=== PATIENT | female | born 1980 | race Caucasian/White ===

== ENCOUNTER 2016-10-31 16:54 | Inpatient (IN) | payer OTHER ==
[~2016-10-31] VITALS: Ht 175.3 cm; Wt 104.3 kg
[~2016-10-31 16:54] MED LIST: IBUPROFEN800 MG PO
[2016-10-31 18:36] LABS: ABSOLUTE BASOPHIL COUNT 0.1 /CUMM (0.0-0.2); ABSOLUTE EOSINOPHIL COUNT 0.3 /CUMM (0.0-0.7); ABSOLUTE LYMPH COUNT 2.5 /CUMM (1.2-3.4); ABSOLUTE MONOCYTE COUNT 1.1 /CUMM (0.10-0.60); BASOPHIL % 0.3 % (0.0-2.0); EOSINOPHIL % 1.7 % (0-5); GRANULOCYTE % 75.7 % (42.2-75.2); HEMATOCRIT 34.3 % (37-47); MEAN CORPUSCULAR HGB 30.6 PG (27.0-31.0); MEAN CORPUSCULAR HGB CONC 34.3 G/DL (33.0-37.0); MEAN CORPUSCULAR VOLUME 89.2 FL (81.0-99.0); MEAN PLATELET VOLUME 7.8 FL (7.4-10.4); PLATELET COUNT 293 /CUMM (130-400); RBC DISTRIBUTION WIDTH 13.2 % (11.5-14.5); RED BLOOD CELL CT 3.85 /CUMM (4.20-5.40); WHITE BLOOD CELL COUNT 15.8 /CUMM (4.8-10.8)
--- NOTE | 2016-10-31 19:31 | Operative Report ---
See Addendum Operative/Inv Procedure Report Surgery Date: 10/31/16 Name of Procedure: Primary Pre-Operative Diagnosis: Nonreassuring heart rate testing Post-Operative Diagnosis: Nuchal cord 2 Estimated Blood Loss: 650 mL Surgeon/Rotor Blade Installer: OSVALDO GEORGE MD,NATASHA Taveras M.D. Anesthesia: spinal Operative/Procedure Note Note: The patient was brought to the operating room and placed on the OR table in the sitting position where she underwent spinal anesthetic without complication. She was repositioned into dorsal supine with a block under her right. Venodyne boots were placed and activated. A Price catheter was previously placed and draining clear yellow urine. The abdomen was then prepped and draped in usual sterile fashion. A Pfannenstiel skin incision was made with the scalpel and taken down to the layer of fascia. The fascia was nicked in the midline and extended bilaterally. Rectus muscles were and the peritoneal cavity was entered bluntly. Bladder flap was created sharply. A low transverse uterine incision made with the scalpel and a liveborn female was delivered atraumatically and handed off to the awaiting curber. There was a shoulder cord and a leg cord. The placenta was then manually removed and the uterus was wiped clean with a wet lap sponge. His closed in 2 layers of 0 Polysorb, the second imbricating the first. The pelvis and abdomen were copiously irrigated. Hemostasis was good. Rectus muscles were reapproximated using 2 interrupted sutures of 2-0 Polysorb. The fascia was closed using #1 Polysorb. Subcutaneous tissues were irrigated and coagulated were needed and the skin was closed using stacie a dry sterile dressing was applied to the wound the patient wasn't sent to recovery in good condition. All needle, sponge, and instrument counts were correct at the end of the procedure 2.
--- NOTE | 2016-10-31 19:43 | History & Physical ---
General Information and HPI MD Statement: I have seen and personally examined CHUCHO CAMERON and documented this H&P. The patient is a 36 year old female at [38] weeks and [4] days gestation who presented with a chief complaint of [ deceleration]. Source of Information: police History of Present Illness: The patient is a 36-year-old 1 para 0 LMP 02/05/2016 EDC 11/11/2016 at 38 weeks and 4 days who presents from primary care doctor's office with spontaneous deceleration on nonstress test. Here on evaluation she also had a spontaneous severe variable deceleration. care is been complete and unremarkable. Allergies/Medications Allergies: Coded Allergies: NO KNOWN ALLERGIES (04/22/15) Home Med list Ibuprofen 800 MG TAB 1 TAB PO TID PRN PAIN Past History remote sensing surveyor History : 1 Para: 0 Last Menstrual Period: 02/05/2016 Estimated Delivery Date: 11/11/2016 Past remote sensing surveyor History: none Medical History Neurological: NONE EENT: NONE Cardiovascular: NONE Respiratory: NONE Gastrointestinal: NONE Hepatic: NONE Renal: NONE Musculoskeletal: NONE Psychiatric: NONE Endocrine: NONE Surgical History Pertinent Surgical History: none, N Review of Systems Review of Systems Constitutional: Reports: no symptoms. EENTM: Reports: no symptoms. Cardiovascular: Reports: no symptoms. Respiratory: Reports: no symptoms. GI: Reports: no symptoms. Genitourinary: Reports: no symptoms. Musculoskeletal: Reports: no symptoms. Skin: Reports: no symptoms. Neurological/Psychological: Reports: no symptoms. Hematologic/Endocrine: Reports: no symptoms. Immunologic/Allergic: Reports: no symptoms. All Other Systems: Reviewed and Negative Exam & Diagnostic Data Obstetric Exam Wgt Gained During : 45 Pelvimetry: Gynecoid Dilation (cm): 0 Effacement (%): 0 Station: -3 Membranes: intact Fluid: clear Fundal Height (cm): 40 Multiple Gestation? No Contractions: None Infant #1 - FHR Baseline: 125 Category: 3 Estimated Weight: 7 pounds Presentation: Cephalic Patient for Induction? No Labs Blood Type & Rh: O+ Antibody Screen: Negative Hct/Hgb & Platelets #1: Hct/Hgb & Platelets #2: Rubella: Immune VDRL #1: Nonreactive VDRL #2: Nonreactive HbsAg: Negative HIV #1: Negative HIV #2 Negative 1 Hr P Group B Strep: Negative Initial Ultrasound: Within normal limits Anatomy Ultrasound: Within normal limits Ultrasound for EFW: 7 Genetic Testing: Negative Last 24 Hrs of Labs/Pancho: Laboratory Tests 10/31/16 1800: CBC w Diff NO MAN DIFF REQ, RBC 3.85 L, MCV 89.2, MCH 30.6, RDW 13.2, MPV 7.8, Gran % 75.7 H, Lymphocytes % 15.5 L, Monocytes % 6.8, Eosinophils % 1.7, Basophils % 0.3, Absolute Granulocytes 12.0 H, Absolute Lymphocytes 2.5, Absolute Monocytes 1.1 H, Absolute Eosinophils 0.3, Absolute Basophils 0.1, PUBS MCHC 34.3 Microbiology 10/31 1818 URINE ROUT: Urine Culture - COLB ITS Data ITS Data Unobtainable at this time Assessment/Plan Assessment/Plan: 39 week nonreassuring heart rate testing Plan: Urgent As Ranked By This Provider Problem List: 1. Non-reassuring cardiotocographic tracing Core Measures/Miscellaneous Venous Thromboembolism VTE Risk Factors: / VTE Contraindications: No Contraindications VTE Diagnosis: No Beta Allegra Is Beta Allegra a Home Med? No Antibiotics Is Patient on Antibiotics? Yes
[2016-10-31] MEDS ORDERED: CELEXA10 M1 PO (21:07)
[2016-11-01 08:21] LABS: ABSOLUTE BASOPHIL COUNT 0 /CUMM (0.0-0.2); ABSOLUTE EOSINOPHIL COUNT 0 /CUMM (0.0-0.7); ABSOLUTE GRANULOCYTE CT 21.6 /CUMM (1.4-6.5); ABSOLUTE LYMPH COUNT 1.8 /CUMM (1.2-3.4); BASOPHIL % 0.1 % (0.0-2.0); EOSINOPHIL % 0.2 % (0-5); HEMATOCRIT 34.4 % (37-47); MEAN CORPUSCULAR HGB 30.6 PG (27.0-31.0); MEAN CORPUSCULAR HGB CONC 34.2 G/DL (33.0-37.0); MEAN CORPUSCULAR VOLUME 89.6 FL (81.0-99.0); MEAN PLATELET VOLUME 8.1 FL (7.4-10.4); RBC DISTRIBUTION WIDTH 13.3 % (11.5-14.5); RED BLOOD CELL CT 3.84 /CUMM (4.20-5.40)
[2016-11-01 08:46] LABS: WHITE BLOOD CELL COUNT 24.5 /CUMM (4.8-10.8)
[2016-11-01 08:47] LABS: GRANULOCYTE % 88.5 % (42.2-75.2); PLATELET COUNT 305 /CUMM (130-400)
[2016-11-03] MEDS ORDERED: PERCOCET 5-3251 EACH PO (12:17)
[2016-11-03] MEDS ORDERED: IBUPROFEN800 M1 PO (12:17)
[2016-11-03] MEDS ORDERED: DOCUSATE SODIU100 M3 PO (12:23)
--- NOTE | 2016-11-20 18:03 | Surgical Discharge Summary ---
Visit Information Visit Dates Admission Date: 10/31/16 Discharge Date: 11/03/16 History of Present Illness Chief Complaint: Nonreassuring heart rate testing Medical History Neurological: NONE EENT: NONE Cardiovascular: NONE Respiratory: NONE Gastrointestinal: NONE Hepatic: NONE Renal: NONE Musculoskeletal: NONE Psychiatric: NONE Endocrine: NONE Surgical History Pertinent Surgical History: none, N Psychosocial History What is Your Primary Language? [place] Review of Systems: Negative Hospital Course Course Attending Physician: NATASHA ROGERS MD Primary Care Physician: MIROSLAVA MONROE,[facility] Course: The patient was noted to have a spontaneous variable deceleration and the FORMS ANALYST office and was sent to labor and delivery for further evaluation. While on the monitor in labor and delivery she experienced 2 prolonged variable decelerations. She was taken for primary and noted to have a shoulder and leg cord at delivery. He was sent to recovery room and did well on postoperative day #1 her Price was discontinued her diet was advanced and her activity was increased. She was afebrile and her vital signs were stable. Operative day #2 she continued to do well was tolerating regular diet voiding and relating. On postoperative day #3 she was discharged home Allergies: Coded Allergies: NO KNOWN ALLERGIES (04/22/15) Disposition Summary Disposition Principal Diagnosis: Nonreassuring heart rate testing Additional Diagnosis: Term Discharge Disposition: home or self care Discharge Instructions General Discharge Information Code Status: Full Code Patient's Diet: Regular Patient's Activity: Pelvic rest with weight restrictions Follow-Up Instructions/Appts: 1 week incision check with Dr. Rogers Medications at Discharge Discharge Medications: Continue taking these medications: Citalopram Hydrobromide (Celexa) 10 MG TABLET 1 Tablet ORAL DAILY Start taking the following new medications: Ibuprofen (Ibuprofen) 800 MG TABLET 800 Milligram ORAL EVERY SIX HOURS NEEDED as needed for UTERINE CRAMPING Qty = 36 No Refills Comments: Last Taken:11/03/16 Time:0630 Oxycodone HCl/Acetaminophen (Percocet 5-325 MG Tablet) 5 MG-325 MG TABLET 1-2 Tablet ORAL EVERY 4 HOURS NEEDED as needed for PAIN SCALE 4-6 ( MODERATE) Qty = 16 No Refills Comments: Last Taken:11/03/16 Time:0924 Docusate Sodium (Docusate Sodium) 100 MG CAPSULE 100 Milligram ORAL AT BEDTIME as needed for STOOL SOFTENER Qty = 60 No Refills Comments: Last Taken:11/02/16 Time:9526
== END 2016-11-03 12:53 | DRG 540 ==
LOC: CBCO 16:54 → GNO 18:08
PROVIDERS: ADMIT Obstetrics & Gynecology
PROC: 10D00Z1 Extraction of Products of Conception, Low, Open Approach (ICD-10-PCS; principal; 2016-10-31)
DX: O76 Abnormality in fetal heart rate and rhythm complicating labor and delivery (principal); Z3A.38 38 weeks gestation of pregnancy; Z37.0 Single live birth
CPT/HCPCS: GNOS; 81003; 87086; 88307; G0463; J0690; J1200; J1885; J2765; J7120